=== PATIENT | male | born 1965 | race Hispanic/Latino ===

== ENCOUNTER 2025-05-24 10:45 | Emergency (ER) | payer SELFPAY ==
[~2025-05-24] VITALS: Ht 165.1 cm; Wt 72.6 kg
[2025-05-24 10:51] VITALS: PULSE 59; RESP 19; TEMP 98.5
[2025-05-24] MEDS ORDERED: AZITHROMYCIN250 MG PO (11:48)
[2025-05-24] MEDS ORDERED: PREDNISONE20 MG PO (11:48)
[2025-05-24] MEDS ORDERED: VENTOLIN HFA18 GM INH (11:48)
[2025-05-24] MEDS ORDERED: ONDANSETRON ODT4 MG PO (11:48)
[2025-05-24 12:07] VITALS: BP 108/77; PULSE 58; RESP 18; TEMP 98.4; O2SAT 98
== END 2025-05-24 12:03 | disposition home or self-care (01) ==
LOC: ER 10:48
DX: R05.9 Cough, unspecified (principal); J06.9 Acute upper respiratory infection, unspecified; R09.89 Other specified symptoms and signs involving the circulatory and respiratory systems; R53.81 Other malaise; F17.210 Nicotine dependence, cigarettes, uncomplicated
CPT/HCPCS: 99282